=== PATIENT | male | born 1995 | race Caucasian/White ===

== ENCOUNTER 2022-07-23 08:58 | Emergency (ER) | payer SELFPAY ==
[2022-07-23 09:12] VITALS: BP 147/28; PULSE 78; RESP 16; TEMP 36.8; O2SAT 96; BMI 19.5
--- NOTE | 2022-07-23 09:19 | PC.NURSE ---
Recent binge on alcohol and cocaine, pt states he has had increased life stressors and has been endorsing increased depression. Pt changed over into hospital attire with security at this time. Resting quietly on stretcher.
--- NOTE | 2022-07-23 09:39 | MHC.RECOVRN ---
Met with pt in [facility] to discuss substance use and desire for treatment. Pt reports using mountains of cocaine, [place]. Pt reports he has used cocaine for years but the amount has been increasing. Pt also reports using optiate pills, PO and IN, unknown amount. Pt states I take it and I just black out. Pt has never received treatment for EL. Pt is interested in [facility] at this time, [facility] as pt lives in [place]. T/w will conduct bedsearch.
--- NOTE | 2022-07-23 10:00 | ED_ITS ---
HPI - Psych General Chief Complaint: ETOH/Substance Use Stated Complaint: COCAINE USE X4 DAY,FEELING ANXIOUS PER EMS Time Seen by Provider: 07/23/22 09:38 Source: patient and EMS Mode of arrival: EMS History of Present Illness HPI Narrative: 27-year-old male with a past medical history of substance abuse presenting to the ED complaining of cocaine use x 4 days, also admits to taking street opiates and drinking EtOH. Last drink around 02:00AM. Reports some chest discomfort, increasing life stressors/depression, and suicidal ideations when using illicit substances. Denies SI/HI at present or planned. Denies SOB, abdominal pain, na usea/vomiting, auditory/visual hallucinations MD complaint: feels depressed, substance abuse and alcohol abuse Related Data Allergies Allergy/AdvReac Type Severity Reaction Status Date / Time No Known Allergies Allergy Verified 07/23/22 10:06 Review of Systems Review of Systems: Constitutional: No Fever, No Chills, No Fatigue, No Malaise ENT/Mouth: No Ear Pain, No sore throat, No Rhinorrhea, No Swallowing Difficulty Eyes: No Eye Pain, No Swelling, No Redness, No Vision Changes Cardiovascular: +Chest Pain, No SOB, No Edema, No Palpitations Respiratory: No Cough, No Sputum, No Dyspnea Gastrointestinal: No Nausea, No Vomiting, No Diarrhea, No Constipation, No Abdominal pain Genitourinary: No irregular bleeding, No Dysuria, No Urinary Frequency, No Flank Pain, No Urinary Flow Changes, No Hesitancy Musculoskeletal: No joint pain, No Myalgias, No Joint Swelling Skin: No Skin Lesions, No rash Neuro: No Weakness, No Numbness, No Paresthesias, No Loss of Consciousness, No Dizziness, No Headache Psych: No Anxiety/Panic, + Depression, +passive SI/HI/AH/VH, + Social Issues Yes all other systems are reviewed and are negative Constitutional: Constitutional: Reports as per HPI [facility] Past Medical History Attestation statement: The following information was validated with the patient. Social History Social History Alcohol intake: current Smoked in Last 30 Days: Yes Substance Use Type: Crack/Cocaine Substance Use Frequency: Recent Binge Advance Directives: No Advance Directives Information Provided: Yes Physical Exam Vital Signs: Vital Signs: Last Vital Signs Temp 98.3 F 07/23/22 09:12 Pulse 78 07/23/22 09:12 Resp 16 07/23/22 09:12 BP 147/28 H 07/23/22 09:12 Pulse Ox 96 07/23/22 09:12 O2 Del Method Room Air 07/23/22 09:12 BMI result Body Mass Index 19.5 Const: General: cooperative, comfortable and no acute distress Orientation/consciousness: patient oriented x3 Limitations: no limitations HEENT: Head: Yes normal to inspection and Yes atraumatic Ears: hearing grossly normal bilaterally General nose exam: Normal external nose present Face and sinus: Yes normal facial exam Eyes: General: appearance normal, both eyes and all related structures EOM: EOMs intact bilaterally Neck: Neck: Yes normal visual inspection and Yes no meningeal signs Resp: Effort & Inspection: normal respiratory effort and no respiratory d istress Auscultation: clear to auscultation bilaterally Cardio: Rate: regular rate Heart sounds: S1 normal heart sound present and S2 normal heart sound present GI: Inspection: Yes normal to inspection Palpation (GI): Soft to palpation, nontender, no guarding and not rigid Skin: Rashes: no rashes Wounds: no wounds Neuro: General: patient oriented x3, tone normal, no meningeal signs and CN's II-XI intact bilaterally Gait exam (Neuro): Normal gait present Extrem: General: Yes normal to inspection Psych: Affect: Sad affect present Attitude: cooperative Thought content: suicidality, no homicidality, no hallucinations and Depressive thoughts present Course Course Course Narrative: -mild leukocytosis of 12.3. T bili elevated to 2.7. Abdomen soft and nontender. Troponin negative -Tox screen positive for cocaine and THC -Physician observation initiated at 15:13 as patient needs more time to be evaluated by CARE team -[id number]--patient was evaluated by recovery, unable to go to detox as does not have insurance. Mother will be picking him up to go home Medical Decision Making Medical Decision Making MDM Narrative: 27-year-old male with a past medical history of substance abuse presenting to the ED complaining of cocaine use x 4 days, also admits to taking street opiates and drinking EtOH. Reports some chest discomfort, increasing life stressors/depression, and suicidal ideations when using illicit substances. On exam vital signs stable, NAD, nontoxic appearing, denies SI/HI at present. Is interested in detox. Concern for cocaine induced chest pain/Vasospasm. Plan: EKG, labs including troponin, drug screen, CARE team consult Please refer to course for remaining clinical decision making, interpretation of labs/imaging results, and discussions with consultants and/or family members. Differential Diagnosis Differential Diagnoses: The differential diagnosis associated with the presentation includes As above Admission/Observation Consideration of admission/observation: Escalation of care including admission/observation considered Lab Data MDM Lab Attestation statement: I reviewed the patient's lab results. 07/23/22 11:26 07/23/22 11:26 Labs: Lab Results 07/23/22 07/23/22 07/23/22 Range/Units 11:26 11:26 11:26 WBC 12.3 H (4.8-10.8) X10*3/uL RBC 4.92 (4.60-5.80) X10*6/uL Hgb 14.4 (14.0-18.0) g/dl Hct 41.6 L (42.0-52.0) % MCV 84.6 (80.0-98.0) fL MCH 29.3 (27.0-33.0) pg MCHC 34.6 (31.0-36.0) g/dl RDW 11.9 (11.0-16.0) % Plt Count 214 (160-400) X10*3/uL MPV 9.6 (9.4-12.4) fL Immature Gran % (Auto) 0.2 (0.0-0.4) % Neut % (Auto) 71.9 (45-73) % Lymph % (Auto) 17.7 L (20-40) % Bollinger % (Auto) 8.6 (2-11) % Eos % (Auto) 1.4 (0-4) % Baso % (Auto) 0.2 (0-2) % Lymph # (Auto) 2.2 (1.2-4.9) X10*3/uL Bollinger # (Auto) 1.1 (0.1-1.2) X10*3/uL Eos # (Auto) 0.2 (0.0-0.4) X10*3/uL Baso # (Auto) 0.0 (0.0-0.2) X10*3/uL Abs Immat Gran (auto) 0.03 (0.00-0.03) X10*3/uL Absolute Neuts (auto) 8.8 H (2.0-8.3) x10*3/uL Absolute Nucleated RBC 0.000 (0.0-0.012) X10*3/uL Nucleated RBC % (auto) 0.0 (0.0-0.2) /100WBC Sodium 141 (135-145) mmol/L Potassium 4.4 (3.3-5.1) mmol/L Chloride 107 (96-108) mmol/L Carbon Dioxide 26 (22-29) mmol/L Anion Gap 12 (12-20) BUN 11 (9-16) mg/dL Creatinine 0.80 (0.5-1.4) mg/dL Estim Creat Clear Calc 126.7 Estimated GFR > 60 Random Glucose 78 (60-115) mg/dL Calcium 9.3 (8.4-10.2) mg/dL Total Bilirubin 2.7 H (0.0-1.0) mg/dL Direct Bilirubin 0.3 (0.0-0.5) mg/dL AST 20 (5-37) U/L ALT 15 (0-40) U/L Alkaline Phosphatase 68 (39-117) U/L Troponin I High Sens < 2.7 (<3.5-35.0) ng/L Total Protein 6.8 (6.5-8.0) g/dL Albumin 4.5 (3.5-5.0) g/dL Urine Opiates Screen (Not Detect) Urine Fentanyl Screen (Not Detect) Ur Barbiturates Screen (Not Detect) Ur Phencyclidine Scrn (Not Detect) Ur Amphetamines Screen (Not Detect) U Benzodiazepines Scrn (Not Detect) Urine Cocaine Screen (Not Detect) U Marijuana (THC) Screen (Not Detect) Ethyl Alcohol < 10 mg/dL 07/23/22 Range/Units 13:20 WBC (4.8-10.8) X10*3/uL RBC (4.60-5.80) X10*6/uL Hgb (14.0-18.0) g/dl Hct (42.0-52.0) % MCV (80.0-98.0) fL MCH (27.0-33.0) pg MCHC (31.0-36.0) g/dl RDW (11.0-16.0) % Plt Count (160-400) X10*3/uL MPV (9.4-12.4) fL Immature Gran % (Auto) (0.0-0.4) % Neut % (Auto) (45-73) % Lymph % (Auto) (20-40) % Bollinger % (Auto) (2-11) % Eos % (Auto) (0-4) % Baso % (Auto) (0-2) % Lymph # (Auto) (1.2-4.9) X10*3/uL Bollinger # (Auto) (0.1-1.2) X10*3/uL Eos # (Auto) (0.0-0.4) X10*3/uL Baso # (Auto) (0.0-0.2) X10*3/uL Abs Immat Gran (auto) (0.00-0.03) X10*3/uL Absolute Neuts (auto) (2.0-8.3) x10*3/uL Absolute Nucleated RBC (0.0-0.012) X10*3/uL Nucleated RBC % (auto) (0.0-0.2) /100WBC Sodium (135-145) mmol/L Potassium (3.3-5.1) mmol/L Chloride (96-108) mmol/L Carbon Dioxide (22-29) mmol/L Anion Gap (12-20) BUN (9-16) mg/dL Creatinine (0.5-1.4) mg/dL Estim Creat Clear Calc Estimated GFR Random Glucose (60-115) mg/dL Calcium (8.4-10.2) mg/dL Total Bilirubin (0.0-1.0) mg/dL Direct Bilirubin (0.0-0.5) mg/dL AST (5-37) U/L ALT (0-40) U/L Alkaline Phosphatase (39-117) U/L Troponin I High Sens (<3.5-35.0) ng/L Total Protein (6.5-8.0) g/dL Albumin (3.5-5.0) g/dL Urine Opiates Screen Not Detected (Not Detect) Urine Fentanyl Screen Not Detected (Not Detect) Ur Barbiturates Screen Not Detected (Not Detect) Ur Phencyclidine Scrn Not Detected (Not Detect) Ur Amphetamines Screen Not Detected (Not Detect) U Benzodiazepines Scrn Not Detected (Not Detect) Urine Cocaine Screen POSITIVE H (Not Detect) U Marijuana (THC) Screen POSITIVE H (Not Detect) Ethyl Alcohol mg/dL Radiology Impression Discussion of test interpretation with radiology: I have reviewed the radiologist's reading. External Record Review External record reviewed: Inpatient record, Office record, Outpatient record, Prior outpatient labs, Prior outpatient radiology, Primary care record and Outside ED record Discharge Plan Discharge Clinical Impression: Active substance abuse, Depression Patient Disposition: Still a Patient
[2022-07-23 11:32] LABS: MANUAL DIFF FLAG NO
[2022-07-23 11:35] LABS: Basophils Percent Auto 0.2 % (0-2); Eosinophils Absolute Auto 0.2 X10*3/uL (0.0-0.4); Eosinophils Percent Auto 1.4 % (0-4); Hematocrit 41.6 % (42.0-52.0); Hemoglobin 14.4 g/dl (14.0-18.0); Imm Gran Abs Auto 0.03 X10*3/uL (0.00-0.03); Imm Gran Pct Auto 0.2 % (0.0-0.4); Lymphocytes Absolute Auto 2.2 X10*3/uL (1.2-4.9); Lymphocytes Percent Auto 17.7 % (20-40); Mean Corpuscular HGB Conc 34.6 g/dl (31.0-36.0); Mean Corpuscular Hemoglobin 29.3 pg (27.0-33.0); Mean Corpuscular Volume 84.6 fL (80.0-98.0); Mean Platelet Volume 9.6 fL (9.4-12.4); Monocytes Absolute Auto 1.1 X10*3/uL (0.1-1.2); Monocytes Percent Auto 8.6 % (2-11); Neutrophils Absolute Auto 8.8 x10*3/uL (2.0-8.3); Neutrophils Percent Auto 71.9 % (45-73); Platelet Count 214 X10*3/uL (160-400); Red Blood Count 4.92 X10*6/uL (4.60-5.80); Red Cell Distribution Width 11.9 % (11.0-16.0); White Blood Count 12.3 X10*3/uL (4.8-10.8)
[2022-07-23 11:48] LABS: Alanine Aminotransferase 15 U/L (0-40); Albumin Level 4.5 g/dL (3.5-5.0); Alkaline Phosphatase 68 U/L (39-117); Anion Gap 12 (12-20); Aspartate Amino Transferase 20 U/L (5-37); Bilirubin Direct 0.3 mg/dL (0.0-0.5); Bilirubin Total 2.7 mg/dL (0.0-1.0); Blood Urea Nitrogen 11 mg/dL (9-16); Calcium 9.3 mg/dL (8.4-10.2); Carbon Dioxide 26 mmol/L (22-29); Chloride 107 mmol/L (96-108); Creatinine Clr Calc Pharmacy 126.7; Estimated Glomerular Filt Rate > 60; Ethanol < 10 mg/dL; Glucose Random 78 mg/dL (60-115); Potassium 4.4 mmol/L (3.3-5.1); Sodium 141 mmol/L (135-145); Total Protein 6.8 g/dL (6.5-8.0)
[2022-07-23 11:56] LABS: Troponin-I High Sensitivity < 2.7 ng/L (<3.5-35.0)
--- NOTE | 2022-07-23 12:40 | MHC.RECOVRN ---
[facility] will accept pt pending UDS. RN aware.
[2022-07-23 13:45] LABS: Amphetamine Screen Urine Not Detected (Not Detect); Barbiturates, Urine Not Detected (Not Detect); Benzodiazepines Screen Urine Not Detected (Not Detect); Cannabinoid Screen Urine POSITIVE (Not Detect); Cocaine Screen Urine POSITIVE (Not Detect); Fentanyl, urine Not Detected (Not Detect); Opiate Screen Urine Not Detected (Not Detect); Phencyclidine Screen Urine Not Detected (Not Detect)
--- NOTE | 2022-07-23 15:11 | MHC.RECOVRN ---
Pt completed phone screen with [facility]. Pt does not have active [place] health insurance nor [place] ID. Intake at [facility] is discussing with supervisors. Awaiting verification of acceptance.
--- NOTE | 2022-07-23 16:24 | MHC.RECOVRN ---
[facility] declined pt due to insurance/lack of [place] ID. Encouraged pt to obtain [place] ID and reach out to [facility]. Pt provided with list of ATS facilities. Discussed UDS results, pt relieved negative fentanyl, states I don't know what those pills were then. Discussed outpatient stimulant use disorder treatment, provided with information on the [facility]. Provided with recovery resources as well as t/w contact information if needed. Plan for mom to transport home. Denies questions or concerns for t/w. RN and provider aware.
== END 2022-07-23 15:00 | disposition home or self-care (01) ==
PROVIDERS: Physician Assistant; Emergency Provider Emergency Medicine
DX: F19.10 Other psychoactive substance abuse, uncomplicated (principal); F32.A Depression, unspecified; F41.9 Anxiety disorder, unspecified; F10.10 Alcohol abuse, uncomplicated; Y90.0 Blood alcohol level of less than 20 mg/100 ml
CPT/HCPCS: 36415; 80048; 80076; 80307; 82077; 84484; 85025; 99284

== ENCOUNTER 2024-10-19 11:28 | Outpatient (REF) | payer OTHER, SELFPAY ==
--- OUTSIDE RECORDS SUMMARY | 2024-10-19 12:38 | XMS_ITS | Clinical Summary ---
Author Organization [facility] Address [address] [place] [address] Care Team Providers Care Dump Truck Driver [address] Name Role Phone Unavailable Primary Care Provider Unavailabl e Source Comments PLEASE NOTE, if this patient is a minor, it may be UNLAWFUL to discuss sensitive information that is contained in these records (such as FAMILY PLANNING, MENTAL HEALTH or SUBSTANCE ABUSE) with the minor patient's parent or other person without the patient's specific authorization.[facility] Allergies No known active allergies Medications No known medications Active Problems No known active problems Social History Tobacco Use Types Packs/Day Years Used Date Smoking Tobacco: Never Smokeless Tobacco: Never Tobacco Cessation:Counseling Given: Not Answered Alcohol Use Standard Drinks/Week Comments Not Currently 0 (1 standard drink = 0.6 oz pur e alcohol) Social Connections Answer Date Recorded Connectedness 0 01/06/2024 Financial Resource Strain Answer Date R ecorded Financial Resource Strain 0 2023 Stress Answer Date Recorded Stress 0 01/06/2024 Physical Activity Answer Date Recorded Physical Activity 0 01/06/2024 Food Insecurity Answer Date Recorded Within the past 12 months, y ou worried that your food would run out before you got money to buy more. 1 01/31/2024 Transportation Needs Answer Date Record ed Transportation 0 01/06/2024 Housing Stability Answer Date Recorded What is your living situation today? 1 01/31/2024 Safety and Environment Answer Date Arturo rded How often does anyone, inclu ding family and friends, physically hurt you? 1 01/31/2024 Utilities Answer Date Recorded In the past 12 months has e electric, gas, oil, or water company threatened to shut off services in your home? 1 01/31/2024 Employment Answer Date Recorded Stress 0 01/06/2024 Sex and Gender Information Value Date Recorded Sex Assigned at Male 01/31/2024 6:31 AM PDT Legal Sex Male 6:04 AM PDT Gender Identity Male 01/31/2024 6:31 AM PDT Sexual Orientation Don't know 01/31/2024 6: 32 AM PDT Last Filed Vital Signs Vital Sign Reading Time Taken Comments Blood Pressure 100/70 01/31/2024 10:32 AM EDT Pulse 69 01/31/2024 10:32 AM EDT Temperature 36.6 C (97.9 F) 01/31/2024 10:32 AM EDT Respiratory Rate - - Oxygen Saturation - - Inhaled Oxygen Concentration - - Weight 72.6 kg (160 lb) 01/31/2024 10:32 AM EDT Height 182.9 cm (6') 01/31/2024 10:32 AM EDT Body Mass Index 21.7 01/31/2024 10:32 AM EDT Plan of Treatment Health Maintenance Due Date Last Done Comments Hepatitis C Screening 1997 HIV Screening 2012 Imm-Hepatitis B (1 of 3 - 19 + 3-dose series) 2016 [id number] () 12/08/202308/18/2 021, 07/28/2020 Alcohol and Drug Screen 04/08/2024 01/31/2024, 01/30 Depression Annual Screen 04/08/2024 01/31/2024 Imm-Influenza (#1) 2024 02/28/2020 Anxiety Screening 01/30/2025 01/31/2024 Tobacco Screening 01/30/2025 01/31/2024 Hypertension Screening (#1) 01/30/2027 Imm-DTaP/Tdap/Td (4 - Td or Tdap) 12/10/2030 12/10/2020, 03/02/2019, 08/17/2014 Procedures Procedure Name Priority Date/Time Associated Diagnosis Comments ALCOHOL/SUBSTANCE SCREEN & INTERVEN 15-30 MIN Routine 01/31/2024 11:07 AM EDT Screening for condition from Last 3 Months or Most Recently Relevant to Health Maintenance
== END 2024-10-19 11:29 | disposition home or self-care (01) ==
LOC: HO.HHCLNP 11:28
PROVIDERS: Visit Provider Family Medicine
DX: A54.9 Gonococcal infection, unspecified (principal)
CPT/HCPCS: 87081